=== PATIENT | female | born 1950 | race Caucasian/White ===

== ENCOUNTER → 2017-11-10 | Outpatient (CLI) | payer OTHER ==
[~2017-11-10] MED LIST: Bactrim Ds Tab1 EACH PO; CARI350 PO; CEPH500 PO; DIVA500EC PO; DOCU100 PO; GAVILAX17 GM PO; HYDACE5 PO; HYDR1TAB94 PO; IBU600 MG PO; Keflex500 MG PO; LOSA50 PO; NAPR500 PO; PEGANONE PO; Percocet 5-3251 EACH PO; SULTRIDS PO
== END | disposition home or self-care (01) ==
LOC: PLD 13:15 → LAB SHORT 13:15
DX: C44.629 Squamous cell carcinoma of skin of left upper limb, including shoulder (principal)
CPT/HCPCS: 88305

== ENCOUNTER 2018-02-22 12:12 | Emergency (ER) | payer OTHER ==
[~2018-02-22] VITALS: Ht 170.2 cm; Wt 92.5 kg
[~2018-02-22 12:12] MED LIST changes: -DOCU100 PO; -IBU600 MG PO; -Keflex500 MG PO; -Percocet 5-3251 EACH PO
[2018-02-22] MEDS ORDERED: PEGANONE PO (12:31)
[2018-02-22] MEDS ORDERED: Keflex500 MG PO (15:33)
== END 2018-02-22 16:00 | disposition home or self-care (01) ==
LOC: ER 12:12
DX: S81.812A Laceration without foreign body, left lower leg, initial encounter (principal); W45.8XXA Other foreign body or object entering through skin, initial encounter; Z79.899 Other long term (current) drug therapy; G40.909 Epilepsy, unspecified, not intractable, without status epilepticus
CPT/HCPCS: 12034; 90471; 90714; 99283

== ENCOUNTER 2018-04-06 05:56 | Inpatient (IN) | payer OTHER ==
[~2018-04-06] VITALS: Ht 165.1 cm; Wt 92.5 kg
[~2018-04-06 05:56] MED LIST changes: +Keflex500 MG PO
[2018-04-07 05:57] LABS: BASOPHILS ABSOLUTE AUTO 0.03 K/mm3 (0.00-0.23); BASOPHILS PERCENT AUTO 0 % (0-2); EOSINOPHILS ABSOLUTE AUTO 0.11 K/mm3 (0.00-0.68); EOSINOPHILS PERCENT AUTO 1 % (0-6); Hematocrit 31.3 % (33.0-51.0); IMMATURE GRAN ABSOLUTE AUTO 0.03 K/mm3 (0.00-0.10); IMMATURE GRAN PERCENT AUTO 0 % (0-1); LYMPHOCYTES ABSOLUTE AUTO 3.01 K/mm3 (0.84-5.20); LYMPHOCYTES PERCENT AUTO 30 % (21-46); MONOCYTES ABSOLUTE AUTO 2.18 K/mm3 (0.16-1.47); MONOCYTES PERCENT AUTO 22 % (4-13); Mean Corpuscular HGB 31.7 pg (26.0-34.0); Mean Corpuscular HGB Conc 31.9 g/dL (31.5-36.5); Mean Corpuscular Volume 99 fL (80-100); Mean Platelet Volume 10.8 fL (9.1-12.4); NEUTROPHILS ABSOLUTE AUTO 4.67 K/mm3 (1.96-9.15); NEUTROPHILS PERCENT AUTO 47 % (41-73); Platelet Count 205 K/mm3 (150-400); RDW Coefficient Variation 15.1 % (11.7-14.2); RDW Standard Deviation 54.5 fL (35.1-46.3); Red Blood Cell Count 3.15 M/mm3 (3.80-5.20); White Blood Cell Count 10.03 K/mm3 (4.00-11.30)
[2018-04-07] MEDS ORDERED: DOCU100 PO (08:54)
[2018-04-07] MEDS ORDERED: Percocet 5-3251 EACH PO (08:55)
[2018-04-07] MEDS ORDERED: IBU600 MG PO (08:58)
== END 2018-04-07 14:12 | disposition home or self-care (01) | DRG 747 ==
LOC: SURS 05:56 → PRE IP 07:30 → SURS 09:47
PROVIDERS: Obstetrics & Gynecology
PROC: 0JQC3ZZ Repair Pelvic Region Subcutaneous Tissue and Fascia, Percutaneous Approach (ICD-10-PCS; 2018-04-06)
PROC: 0JQC3ZZ Repair Pelvic Region Subcutaneous Tissue and Fascia, Percutaneous Approach (ICD-10-PCS; 2018-04-06)
PROC: 0UQF3ZZ Repair Cul-de-sac, Percutaneous Approach (ICD-10-PCS; principal; 2018-04-06 07:30)
DX: N99.3 Prolapse of vaginal vault after hysterectomy (principal); G40.909 Epilepsy, unspecified, not intractable, without status epilepticus; Z86.11 Personal history of tuberculosis; M19.90 Unspecified osteoarthritis, unspecified site; Z90.710 Acquired absence of both cervix and uterus; Z90.722 Acquired absence of ovaries, bilateral
CPT/HCPCS: 36415; 85025; J0171; J0690; J1100; J1885; J2250; J2370; J2405; J3010; J7120

== ENCOUNTER → 2018-05-25 | Outpatient (CLI) | payer OTHER ==
[~2018-05-25] MED LIST changes: +DOCU100 PO; +IBU600 MG PO; +Percocet 5-3251 EACH PO
== END | disposition home or self-care (01) ==
LOC: LAB SHORT 07:57 → PLD 07:57
DX: D09.8 Carcinoma in situ of other specified sites (principal)
CPT/HCPCS: 88305

== ENCOUNTER 2020-06-02 10:14 | Observation (INO) | payer OTHER ==
[~2020-06-02] VITALS: Ht 167.6 cm; Wt 81.7 kg
[~2020-06-02 10:14] MED LIST changes: -DIVA500EC PO
[2020-06-02 10:47] LABS: BASOPHILS ABSOLUTE AUTO 0.03 K/mm3 (0.00-0.23); BASOPHILS PERCENT AUTO 0 % (0-2); EOSINOPHILS ABSOLUTE AUTO 0.16 K/mm3 (0.00-0.68); EOSINOPHILS PERCENT AUTO 2 % (0-6); Hematocrit 35.8 % (33.0-51.0); Hemoglobin 11.7 g/dL (11.5-16.0); IMMATURE GRAN ABSOLUTE AUTO 0.02 K/mm3 (0.00-0.10); IMMATURE GRAN PERCENT AUTO 0 % (0-1); LYMPHOCYTES ABSOLUTE AUTO 1.88 K/mm3 (0.84-5.20); LYMPHOCYTES PERCENT AUTO 21 % (21-46); MONOCYTES ABSOLUTE AUTO 1.43 K/mm3 (0.16-1.47); MONOCYTES PERCENT AUTO 16 % (4-13); Mean Corpuscular HGB 33.9 pg (26.0-34.0); Mean Corpuscular HGB Conc 32.7 g/dL (31.5-36.5); Mean Corpuscular Volume 104 fL (80-100); Mean Platelet Volume 11.3 fL (9.1-12.4); NEUTROPHILS ABSOLUTE AUTO 5.38 K/mm3 (1.96-9.15); NEUTROPHILS PERCENT AUTO 61 % (41-73); Platelet Count 146 K/mm3 (150-400); RDW Coefficient Variation 14.8 % (11.7-14.2); RDW Standard Deviation 57.1 fL (35.1-46.3); Red Blood Cell Count 3.45 M/mm3 (3.80-5.20)
[2020-06-02 11:09] LABS: Alanine Aminotransfer (ALT/SGP 7 U/L (12-78); Albumin, Blood 2.1 g/dL (3.4-5.0); Albumin/Globulin Ratio 0.4 (0.8-1.8); Alk Phos 211 U/L (50-136); Anion Gap 1 mmol/L (6-16); Aspartate Aminotrans (AST/SGOT 19 U/L (12-37); Bilirubin, Total 0.5 mg/dL (0.1-1.0); Blood Urea Nitrogen 40 mg/dL (8-24); CO2, Blood 31 mmol/L (21-32); Calcium, Blood 8.7 mg/dL (8.5-10.1); Chloride, Blood 110 mmol/L (98-108); Creatinine, Blood 0.91 mg/dL (0.40-1.00); Globulin, Blood 5.2 g/dL (2.2-4.0); Glomerular Filtration Rate >60 (60-); Glucose, Blood 84 mg/dL (70-99); Potassium, Blood 4.6 mmol/L (3.5-5.5); Sodium, Blood 142 mmol/L (136-145); Total Protein, Blood 7.3 g/dL (6.4-8.2); Troponin I <0.015 ng/mL (0.000-0.040)
[2020-06-02 12:14] LABS: Source, Urine Catheter
[2020-06-02 12:16] LABS: Appearance, Urine Clear (Clear); Bilirubin, Urine Neg (Neg); Blood, Urine Neg (Neg); Color, Urine Yellow (P-Yellow); Glucose Qualitative, Urine Neg (Neg); Ketones, Urine 2+ (Neg); Leukocyte Esterase, Urine Neg (Neg); Nitrite, Urine Neg (Neg); Protein, Urine 1+ (Neg); Urobilinogen, Urine NORM (Normal)
[2020-06-02] MEDS ORDERED: TORS10 PO (13:06)
[2020-06-02 13:18] LABS: International Normalized Ratio 1.01; Prothrombin Time Results 10.8 Sec (9.7-11.5)
[2020-06-02] MEDS ORDERED: Depakote ER500 MG PO ×2 (13:18→13:19)
[2020-06-02] MEDS ORDERED: PEGANONE PO ×2 (13:21)
--- NOTE | 2020-06-02 18:45 | NUR ---
HX AND MED REC OBTAINED FROM PATIENT AND SPOUSE. PATIENT TO CT SCAN. PHOTO DOCUMENTATION OF BUTTOCK EXCORIATION COMPLETED. PATIENT TAKING DINNER. REPORT TO ADOLPH DIAS.
[2020-06-02 19:20] LABS: Hematocrit 38.2 % (33.0-51.0); Hemoglobin 12.5 g/dL (11.5-16.0)
[2020-06-03] MEDS ORDERED: PEGANONE PO
--- NOTE | 2020-06-03 04:57 | NUR ---
SHIFT SUMMARY A/O BUT SLOW TO RESPOND AT TIMES AND CAN BE EASILY CONFUSED. VSS. NPO. TURNED T/O SHIFT OFTEN, RIGO. 2-3+ EDEMA TO BLE, PT STATES AT BASELINE. BLE ELEVATED ON PILLOWS. PHOTOS OF RED AREA/BREAK DOWN TO COCCYX TAKEN AND PLACED IN CHART. MEPILEX TO COCCYX PLACED AND IS CDI. PAIN MANAGED WITH PO MEDS AND FENTANYL X1 FOR BREAKTHROUGHT. IVF INFUSING PER ORDERS. RIOS TO GRAVITY DRAIN. SPOUSE IS TO BRING IN MED REC FROM HOME FOR VERIFICATION. PT CURRENTLY RESTING IN BED WITH CALL LIGHT IN REACH.
[2020-06-03 04:59] LABS: BASOPHILS ABSOLUTE AUTO 0.03 K/mm3 (0.00-0.23); BASOPHILS PERCENT AUTO 0 % (0-2); EOSINOPHILS ABSOLUTE AUTO 0.24 K/mm3 (0.00-0.68); EOSINOPHILS PERCENT AUTO 3 % (0-6); Hemoglobin 12.2 g/dL (11.5-16.0); IMMATURE GRAN ABSOLUTE AUTO 0.02 K/mm3 (0.00-0.10); IMMATURE GRAN PERCENT AUTO 0 % (0-1); LYMPHOCYTES ABSOLUTE AUTO 1.88 K/mm3 (0.84-5.20); LYMPHOCYTES PERCENT AUTO 26 % (21-46); MONOCYTES ABSOLUTE AUTO 1.42 K/mm3 (0.16-1.47); MONOCYTES PERCENT AUTO 20 % (4-13); Mean Corpuscular HGB 33.7 pg (26.0-34.0); Mean Corpuscular HGB Conc 32.1 g/dL (31.5-36.5); Mean Corpuscular Volume 105 fL (80-100); Mean Platelet Volume 11.7 fL (9.1-12.4); NEUTROPHILS ABSOLUTE AUTO 3.58 K/mm3 (1.96-9.15); NEUTROPHILS PERCENT AUTO 50 % (41-73); Platelet Count 126 K/mm3 (150-400); RDW Coefficient Variation 14.7 % (11.7-14.2); RDW Standard Deviation 57.7 fL (35.1-46.3); Red Blood Cell Count 3.62 M/mm3 (3.80-5.20); White Blood Cell Count 7.17 K/mm3 (4.00-11.30)
[2020-06-03 05:12] LABS: Alanine Aminotransfer (ALT/SGP 52 U/L (12-78); Albumin, Blood 1.9 g/dL (3.4-5.0); Albumin/Globulin Ratio 0.4 (0.8-1.8); Alk Phos 283 U/L (50-136); Anion Gap 3 mmol/L (6-16); Aspartate Aminotrans (AST/SGOT 237 U/L (12-37); Bilirubin, Total 0.8 mg/dL (0.1-1.0); Blood Urea Nitrogen 40 mg/dL (8-24); Bun/Creatinine Ratio 54.6 (12.0-20.0); CO2, Blood 29 mmol/L (21-32); Calcium, Blood 8.3 mg/dL (8.5-10.1); Chloride, Blood 110 mmol/L (98-108); Creatinine, Blood 0.73 mg/dL (0.40-1.00); Globulin, Blood 4.8 g/dL (2.2-4.0); Glomerular Filtration Rate >60 (60-); Glucose, Blood 75 mg/dL (70-99); Potassium, Blood 4.4 mmol/L (3.5-5.5); Sodium, Blood 142 mmol/L (136-145); Total Protein, Blood 6.7 g/dL (6.4-8.2)
--- NOTE | 2020-06-03 07:00 | NUR ---
recvd report from previous shift rn Lesley, pt sleeping in room with tv on low volume. bed in lowest position, bed rails up x 2, call light within reach
--- NOTE | 2020-06-03 08:34 | NUR ---
dr ortiz and amanda blackmon consulted with pt. after review of ct scan, no fx; pt nonsurgical
--- NOTE | 2020-06-03 10:30 | NUR ---
FAMILY IN WITH PT
--- NOTE | 2020-06-03 11:10 | NUR ---
CARE MANAGEMENT IN WITH PT AND
--- NOTE | 2020-06-03 15:00 | NUR ---
1100- pt's family has come to pt's room, , daughter in law, and two granddaughters. pt's family notified of visitation polity 1200- pt's daughter in law and grandchildren left; pt's remains 1500- pt's daughter outside requesting to be admitted. daughter notified of visitation policy. admitting has called the surgical desk 3 times; pt's requesting this RN call admitting and tell them "it's ok". Pt's relayed that he does not drive, and that one of his family members will need to take him home. Permission given for Pt's daughter to come to room, will take pt's home. Admitting called desk another time, relaying that pt's daughter has developmentally disabled child with her; 15 YO autistic son accompanies pt's daughter to room. THis RN provided pt's family education/printed material regarding hospital policy. Nursing camp maintenance supervisor notified. Pt's daughter notified she would need to provide transport for pt's when leaving.
--- NOTE | 2020-06-03 16:23 | NUR ---
second shift supervisor: vss, no acute changes. pt remained at baseline orientation r/t hx of parkinson's. Pt family has been visiting t/o shift. PT repositioned q2 this shift. pt states she does not have "much of an appetite"; has had minimal PO intake. Nursing staff has encouraged snacks and told family members they may bring her favorite snacks/food items from home. pt has received Lasix diuretic per nov with 1000 ml urine output. Lungs clear. PT/OT attempted to work with pt, co-treat, were able to sit pt on edge of bed, 2 person max assist, pt cried out. pt appeared to be fearful/anxious with moving. family notifed nursing staff that pt's is fearful of falling if she stands. business services tech transitional care nurse has visited with family and provided resources for DC planning.
--- NOTE | 2020-06-03 17:25 | NUR ---
APPROX 1130 PT'S BROUGHT HOME MEDICATION PEGANONE, IN STAPLED PLASTIC BAG WITH HANDWRITTEN MARKER "JANAE" AND "PEGANONE" WRITTEN ON BAG. THIS RN REQUESTED PRESCRIPTION BOTTLE WITH PT'S IDENTIFIERS, PRESCRIBING PROVIDER, INSTRUCTIONS TO BE SENT TO PHARMACY FOR VERIFICATION. PT'S REPORTS THEY DO NOT HAVE THIS, THAT THEY PURCHASE THIS "ORPHAN" DRUG DIRECT FROM THE HAND STITCHER, THAT THEIR NEUROLOGIST IN [place] APPROVED THIS. PT'S DISPENSED MEDICATION AT NOON. 1600-THIS RN SPOKE WITH DR HURTADO, REPORTED THE PT'S HOME DOSE AND SCHEDULED FOR PEGANONE, WHICH INCLUDES THE FOLLOWING: PEGANONE 250 MG TABS, TAKE 2 TABS IN THE MORNING, 1 TAB AT 1200, [address] HURTADO GAVE ORDERS FOR PT TO TAKE HOME DOSE AT SCHEDULED TIMES 1730- THIS RN CALLED PHARMACY, SPOKE WITH LUNA, RELAYED INFORMATION FROM PT'S FAMILY AND DR HURTADO. PHARMACIST RELAYED POLICY OF REQUIRED PRESCRIBER, NAMES, LOT/EXPIRATION NUMBER FOR VERIFICATION. THIS RN WILL RETURN THE PILLS TO THE PT'S , SPOKE WITH CYANIDE POT HARDENER AND INSTRUCTED TO HAVE PT'S FAMILY DISPENSE MEDICATION
[2020-06-04 04:45] LABS: BASOPHILS ABSOLUTE AUTO 0.03 K/mm3 (0.00-0.23); BASOPHILS PERCENT AUTO 0 % (0-2); EOSINOPHILS ABSOLUTE AUTO 0.24 K/mm3 (0.00-0.68); EOSINOPHILS PERCENT AUTO 3 % (0-6); Hematocrit 30.6 % (33.0-51.0); Hemoglobin 9.7 g/dL (11.5-16.0); IMMATURE GRAN ABSOLUTE AUTO 0.02 K/mm3 (0.00-0.10); IMMATURE GRAN PERCENT AUTO 0 % (0-1); LYMPHOCYTES ABSOLUTE AUTO 2.31 K/mm3 (0.84-5.20); LYMPHOCYTES PERCENT AUTO 30 % (21-46); MONOCYTES ABSOLUTE AUTO 1.68 K/mm3 (0.16-1.47); MONOCYTES PERCENT AUTO 22 % (4-13); Mean Corpuscular HGB 33.6 pg (26.0-34.0); Mean Corpuscular HGB Conc 31.7 g/dL (31.5-36.5); Mean Corpuscular Volume 106 fL (80-100); NEUTROPHILS ABSOLUTE AUTO 3.53 K/mm3 (1.96-9.15); NEUTROPHILS PERCENT AUTO 45 % (41-73); Platelet Count 128 K/mm3 (150-400); RDW Coefficient Variation 14.6 % (11.7-14.2); RDW Standard Deviation 57.6 fL (35.1-46.3); Red Blood Cell Count 2.89 M/mm3 (3.80-5.20); White Blood Cell Count 7.81 K/mm3 (4.00-11.30)
[2020-06-04 05:12] LABS: Alanine Aminotransfer (ALT/SGP 35 U/L (12-78); Albumin, Blood 1.5 g/dL (3.4-5.0); Albumin/Globulin Ratio 0.4 (0.8-1.8); Alk Phos 245 U/L (50-136); Anion Gap 2 mmol/L (6-16); Aspartate Aminotrans (AST/SGOT 112 U/L (12-37); Bilirubin, Total 0.4 mg/dL (0.1-1.0); Blood Urea Nitrogen 33 mg/dL (8-24); Bun/Creatinine Ratio 45.1 (12.0-20.0); CO2, Blood 30 mmol/L (21-32); Calcium, Blood 8.2 mg/dL (8.5-10.1); Chloride, Blood 108 mmol/L (98-108); Creatinine, Blood 0.73 mg/dL (0.40-1.00); Globulin, Blood 4.2 g/dL (2.2-4.0); Glomerular Filtration Rate >60 (60-); Glucose, Blood 78 mg/dL (70-99); Potassium, Blood 4.9 mmol/L (3.5-5.5); Sodium, Blood 140 mmol/L (136-145); Total Protein, Blood 5.7 g/dL (6.4-8.2)
--- NOTE | 2020-06-04 06:33 | NUR ---
SHIFT SUMMARY GROUND LVL FALL, A/O X4 W/ INTERMITTENT CONFUSION W/ TIME/PLACE, PT WAS ALWAYS ABLE TO IDENTIFY SELF/LOCATION. VSS, DECUB ON L GLUTEAL COVERED W/ MEPILEX THAT IS C/D/I, REPOSITION Q2, PAIN CONTROLLED PER EMAR. PT FAMILY TO BRING IN PILLOW FROM HOME TO PLACE UNDER PT FOR PT COMFORT. FAMILY TO ALSO BRING IN A HOME MEDICATION THAT IS NOT IN INVENTORY. FAMILY INSTRUCTED TO DO THIS PER PRIOR SHIFT RN (SEE NOTES). WILL CONTINUE TO MONITOR AND REPORT TO ONCOMING DAY RN.
--- NOTE | 2020-06-04 10:44 | NUR ---
PT COMPLAINED OF A SORE THROAT. PT'S THROAT DOES NOT APPEAR RED OR HAVE WHITE SPOTS OR COATING. VSS. WILL CONTINUE TO MONITOR.
--- NOTE | 2020-06-04 18:25 | NUR ---
SHIFT SUMMARY PT WAS ADMITTED FOR A SMALL BOWEL OBSTRUCTIONS WHICH APPEARS TO BE RESOLVING. PT HAS BOWEL SOUNDS AND REPORTS PASSING FLATUS. PT HAS TOLERATED A CLEAR LIQUID DIET TODAY. PT IS GETTING ANTIBIOTICS FOR UTI. PLAN FOR RETURN HOME TO [facility] WHEN PT IS A 1 PERSON ASSIST. PT HAD DIFFICULTY DRINKING THIN LIQUIDS TODAY. STAFF AT [facility] REPORT THAT PT TOLERATED THIN LIQUIDS AND STRAWS AT HOME. SPEECH THERAPY CONSULT REQUESTED. PLAN FOR PT/OT TOMORROW. PT'S DAUGHTER (CRISTIANE) HAS BEEN IN CONTACT WITH PT AND STAFF. PT HAS BEEN ASSISTED TO CALL HER SINCE SHE TALKS WITH HIM DAILY. VSS. WILL MONITOR UNTIL REPORT TO ONCOMING RN.
--- NOTE | 2020-06-04 18:44 | NUR ---
SHIFT SUMMARY PT WAS ADMITTED FOR PAIN MANAGEMENT R/T R HIP CONTUSION. PAIN HAS BEEN MANAGED WITH PO OXYCODONE THIS SHIFT. SHE IS A 2 PERSON ASSIST FOR REPOSITIONING. PT HAS BEEN REPOSITIONED FREQUENTLY T/O THE DAY. FAMILY BROUGHT IN A CUSION TO PLACE UNDER THE PT FOR COMFORT. PT REPORTED IMPROVED COMFORT. FAMILY HAS BEEN PRESENT FOR SUPPORT. VSS. WILL MONITOR UNTIL REPORT TO ONCOMING RN.
--- NOTE | 2020-06-05 03:49 | NUR ---
SUMMARY PT RECEIVED PO PAIN MED X1 AND APPEARING SLEEPING AFTER. NO ACUTE CHANGES NOTED.
[2020-06-05 05:08] LABS: Anion Gap 1 mmol/L (6-16); Blood Urea Nitrogen 23 mg/dL (8-24); Bun/Creatinine Ratio 37.5 (12.0-20.0); CO2, Blood 32 mmol/L (21-32); Calcium, Blood 8.5 mg/dL (8.5-10.1); Chloride, Blood 104 mmol/L (98-108); Creatinine, Blood 0.61 mg/dL (0.40-1.00); Glomerular Filtration Rate >60 (60-); Glucose, Blood 88 mg/dL (70-99); Sodium, Blood 137 mmol/L (136-145)
--- NOTE | 2020-06-05 06:01 | NUR ---
SUMMARY PT WITH INDENTATIONS AND PINK IN AREAS OF SCD AIR POCKETS REPLACED CALF SCDS WITH KNEE HIGH TEDS AND FOOT PAS PUMPS.
--- NOTE | 2020-06-05 08:52 | NUR ---
DISCUSSED WITH DR NAVARRO PT UNABLE TO SWALLOW ER DEPAKOTE. TO SEE PT, FAMILY IN ROOM.
--- NOTE | 2020-06-05 10:43 | NUR ---
PT RESTING QUIETLY, PT'S FAMILY REPORTS MAY TALK TO PT'S ON PHONE. CALLED FOR UPDATE, [place] TO HAVE DR CALL HIM, EXPRESSING CONCERN OF GOING HOME TODAY, REQ TO HAVE HOSPITAL BED IN HOME. DR NOTIFIED. MUD PLANT OPERATOR NOTIFIED.
--- NOTE | 2020-06-05 13:58 | NUR ---
DR NAVARRO HERE TO SEE PT AND PER REQUEST.
[2020-06-05] MEDS ORDERED: BENMENLOZ PO (14:27)
[2020-06-05] MEDS ORDERED: ROXICODONE5 MG PO (14:28)
[2020-06-05] MEDS ORDERED: EUTHYROX75 MCG PO (14:28)
[2020-06-05] MEDS ORDERED: MIRALAX17 GM PO (14:29)
--- NOTE | 2020-06-05 17:45 | NUR ---
DISCHARGE: PT EATING AND DRINKING. PT HAS RIOS IN PLACE. PT REPORTED TO THIS RN THAT SHE HAS BEEN FOR A LONG TIME AND THAT HER TAKES GOOD CARE OF HER AND THAT SHE IS READY AND WANTS TO GO HOME. TRANSPORT HERE TO GET PT. DISCUSSED WITH PT'S OVER PHONE DISCHARGE ORDERS. REPORTS HER SON ALREADY GOT PT'S MEDICATION AND THAT THEY HAVE PAIN MEDICATION AT HOME THAT WILL GET HER THROUGH TONIGHT IF THEY ARE UNABLE TO CITY CLERK SCRIPT TONIGHT. COVERING AND LINING SUPERVISOR ASSISTED WITH PT'S DISCHARGE. PT REPORTED TO HAVE BED DELIVERED TODAY. RT COMPLETED HOME O2 EVAL WHICH SHE DID NOT QUALIFY FOR AND COVERING AND LINING SUPERVISOR DISCUSSED WITH PT'S WELL. PT SENT HOME BY GURNEY TRANSPORT WITH BELONGINGS AND PAPERWORK. INCLUDING PT'S BLACK FOAM PAD FOR HER BOTTOM.
== END 2020-06-05 17:52 | disposition home or self-care (01) ==
LOC: ER 10:14 → ERHOLD 10:15 → SURS 10:15 → ERHOLD 14:16 → SURS 14:16 → ER 14:16 → SURS 17:29 → ERHOLD 17:29 → SURS 06-03 15:18
PROVIDERS: Emergency Medicine; Internal Medicine; Nurse Practitioner Acute Care; ADMIT Family Medicine
DX: S70.01XA Contusion of right hip, initial encounter (principal); W07.XXXA Fall from chair, initial encounter; K62.5 Hemorrhage of anus and rectum; R60.0 Localized edema; I10 Essential (primary) hypertension; G40.209 Localization-related (focal) (partial) symptomatic epilepsy and epileptic syndromes with complex partial seizures, not intractable, without status epilepticus; E03.9 Hypothyroidism, unspecified; Z79.899 Other long term (current) drug therapy
CPT/HCPCS: 36415; 51702; 71045; 73502; 73560-RT; 73700; 80048; 80053; 80164; 83690; 83735; 84443; 84484; 85014; 85018; 85025; 85610; 85730; 93005; 93010; 94761; 96374-59; 96375-59; 97112; 97162; 97166; 99285-25; A9270; A9270-GY; J1650; J1940; J2405; J3010; J7030

== ENCOUNTER 2020-06-15 13:03 | Inpatient (IN) | payer OTHER ==
[~2020-06-15] VITALS: Ht 170.2 cm; Wt 68.2 kg
[~2020-06-15 13:03] MED LIST changes: +BENMENLOZ PO; +Depakote ER500 MG PO; +EUTHYROX75 MCG PO; +MIRALAX17 GM PO; +ROXICODONE5 MG PO; +TORS10 PO
[2020-06-15 13:34] LABS: Hematocrit 31.4 % (33.0-51.0); Hemoglobin 10.4 g/dL (11.5-16.0); Mean Corpuscular HGB 33.4 pg (26.0-34.0); Mean Corpuscular HGB Conc 33.1 g/dL (31.5-36.5); Mean Corpuscular Volume 101 fL (80-100); Platelet Count 238 K/mm3 (150-400); RDW Coefficient Variation 14.8 % (11.7-14.2); Red Blood Cell Count 3.11 M/mm3 (3.80-5.20); White Blood Cell Count 15.33 K/mm3 (4.00-11.30)
[2020-06-15 13:54] LABS: International Normalized Ratio 1.19; Prothrombin Time Results 12.6 Sec (9.7-11.5)
[2020-06-15 14:01] LABS: BAND PERCENT MAN 7 % (0-8); BASOPHILS PERCENT MAN 0 % (0-2); EOSINOPHILS PERCENT MAN 0 % (0-6); LYMPHOCYTES ABSOLUTE MAN 1.83 K/mm3 (0.84-5.20); LYMPHOCYTES PERCENT MAN 12 % (21-46); MONOCYTES ABSOLUTE MAN 3.37 K/mm3 (0.16-1.47); MONOCYTES PERCENT MAN 22 % (4-13); NEUTROPHILS ABSOLUTE MAN 10.11 K/mm3 (1.96-9.15); SEG NEUTROPHILS PERCENT MAN 59 % (41-73); TOTAL CELLS COUNTED 100
[2020-06-15 14:15] LABS: Alanine Aminotransfer (ALT/SGP 16 U/L (12-78); Albumin, Blood 1.3 g/dL (3.4-5.0); Albumin/Globulin Ratio 0.3 (0.8-1.8); Alk Phos 143 U/L (50-136); Anion Gap 6 mmol/L (6-16); Aspartate Aminotrans (AST/SGOT 34 U/L (12-37); Bilirubin, Total 0.3 mg/dL (0.1-1.0); Blood Urea Nitrogen 54 mg/dL (8-24); Bun/Creatinine Ratio 35.3 (12.0-20.0); CO2, Blood 31 mmol/L (21-32); Calcium, Blood 8.2 mg/dL (8.5-10.1); Carbamazepine <0.5 ug/mL (4.0-12.0); Chloride, Blood 92 mmol/L (98-108); Creatinine, Blood 1.53 mg/dL (0.40-1.00); Globulin, Blood 4.8 g/dL (2.2-4.0); Glomerular Filtration Rate 36 (60-); Glucose, Blood 87 mg/dL (70-99); Potassium, Blood 4.3 mmol/L (3.5-5.5); Sodium, Blood 129 mmol/L (136-145); Total Protein, Blood 6.1 g/dL (6.4-8.2); Troponin I <0.015 ng/mL (0.000-0.040)
[2020-06-15 15:18] LABS: Source, Urine Catheter
[2020-06-15 15:20] LABS: Appearance, Urine Hazy (Clear); Bilirubin, Urine Neg (Neg); Blood, Urine 4+ (Neg); Color, Urine Yellow (P-Yellow); Glucose Qualitative, Urine Neg (Neg); Ketones, Urine 1+ (Neg); Leukocyte Esterase, Urine 3+ (Neg); Nitrite, Urine Neg (Neg); Protein, Urine 2+ (Neg); Specific Gravity, Urine 1.015 (1.003-1.022); Urobilinogen, Urine 1+ (Normal)
[2020-06-15 15:31] LABS: Amorphous Light (0-Heavy); Bacteria Many /hpf; Renal Epithelial Rare /hpf (0-Rare); Squamous Epithelial Cells Not Seen /hpf (Few)
[2020-06-15] MEDS ORDERED: DIVA125 PO ×4 (15:40→15:41)
[2020-06-15] MEDS ORDERED: TORS10 PO (15:42)
[2020-06-15] MEDS ORDERED: PEGANONE PO ×4 (15:46→15:47)
--- NOTE | 2020-06-15 19:44 | NUR ---
NEW ER ADMIT APPROX 1800 PT ARRIVE TO 363 FROM ER VIA GURNEY ACCOMPANIED BY & DAUGHTER. PT UNABLE TO STAND/BR WT PER FAMILY, LIFT PT @ HOME. HX PARKINSONS. PT IS AWAKE, ORIENT X2, VOICE VERY WEAK, SHE ALLOWS FAMILY TO ANSWER MOST ADMIT QUESTIONS. SHE STATE NO PAIN @ THIS TIME, NO SOB. RIOS CATH PRESENT @ ADMIT, FAMILY STATE SHE WENT HOME WITH IT WHEN LAST D/C FROM HOSP. NOC RN ALERTED THAT CATH WILL NEED TO BE CHANGED. IV NS INFUSION STARTED/ORDER. FLU VAC GIVEN/REQUEST. FAMILY STATE PT HAS BUTTOCKS ULCER, NOC RN TO PHOTO/ASSESS. PT ARRIVE TO W O2 @ 4L 99%, WILL TITRATE DOWN. FAMILY STATE ON RA @ HOME. DR RAMOS ORDER NPO X MEDS W SM BITES PUREE UNTIL ST EVAL, PT/FAMILY NOTIFIED. ORIENTED TO & CALL SYSTEM, PT DEMONSTRATES USE OF REMOTE. SITTING UP WATCHING TV @ BEDSIDE REPORT.
[2020-06-16 05:34] LABS: BASOPHILS ABSOLUTE AUTO 0.03 K/mm3 (0.00-0.23); BASOPHILS PERCENT AUTO 0 % (0-2); EOSINOPHILS ABSOLUTE AUTO 0.31 K/mm3 (0.00-0.68); EOSINOPHILS PERCENT AUTO 2 % (0-6); Hematocrit 28.8 % (33.0-51.0); Hemoglobin 9.7 g/dL (11.5-16.0); IMMATURE GRAN ABSOLUTE AUTO 0.07 K/mm3 (0.00-0.10); IMMATURE GRAN PERCENT AUTO 1 % (0-1); LYMPHOCYTES ABSOLUTE AUTO 2.35 K/mm3 (0.84-5.20); LYMPHOCYTES PERCENT AUTO 18 % (21-46); MONOCYTES ABSOLUTE AUTO 3.03 K/mm3 (0.16-1.47); MONOCYTES PERCENT AUTO 24 % (4-13); Mean Corpuscular HGB 33.8 pg (26.0-34.0); Mean Corpuscular HGB Conc 33.7 g/dL (31.5-36.5); Mean Corpuscular Volume 100 fL (80-100); Mean Platelet Volume 10.9 fL (9.1-12.4); NEUTROPHILS ABSOLUTE AUTO 7.03 K/mm3 (1.96-9.15); NEUTROPHILS PERCENT AUTO 55 % (41-73); Platelet Count 225 K/mm3 (150-400); RDW Coefficient Variation 14.7 % (11.7-14.2); RDW Standard Deviation 53.8 fL (35.1-46.3); Red Blood Cell Count 2.87 M/mm3 (3.80-5.20); White Blood Cell Count 12.82 K/mm3 (4.00-11.30)
[2020-06-16 06:03] LABS: Albumin, Blood 1.2 g/dL (3.4-5.0); Anion Gap 5 mmol/L (6-16); Blood Urea Nitrogen 50 mg/dL (8-24); Bun/Creatinine Ratio 47.6 (12.0-20.0); CO2, Blood 30 mmol/L (21-32); Chloride, Blood 96 mmol/L (98-108); Creatinine, Blood 1.05 mg/dL (0.40-1.00); Glomerular Filtration Rate 55 (60-); Glucose, Blood 93 mg/dL (70-99); Phosphorus, Blood 3.7 mg/dL (2.5-4.9); Potassium, Blood 4.1 mmol/L (3.5-5.5); Sodium, Blood 131 mmol/L (136-145)
--- NOTE | 2020-06-16 06:21 | NUR ---
AUTOMOBILE DETAILER SUMMARY NO ACUTE CHANGES THIS SHIFT. PT AAOX3, ABLE TO COMMUNICATE HER NEEDS BUT IS VERY FLAT IN AFFECT. HOME RIOS CATHETER REPLACED WITH NEW ONE. PT DID NOT TOLERATE VERY WELL BECAUSE SHE IS VERY PAINFUL WITH ANY MOVEMENT OR TOUCH. LEGS ARE VERY SENSITIVE WITH 3+ EDEMA. MEDS CRUSHED IN APPLESAUCE WITH ORAL CARE AFTER PT TENDS TO UNINTENTIONALLY POCKET FOOD IN CHEEKS. PT HAS SLEPT MOST OF THE NIGHT ON 2L O2 VIA NC. VSS, WILL CONTINUE TO MONITOR.
--- NOTE | 2020-06-16 18:53 | NUR ---
SHIFT SUMMARY PT AxOx3. IMPROVED ORIENTATION DAY PROGRESSED. PT VERY SLEEPY MOST OF DAY. +4 PITTING EDEMA TO BLE. ELEVATED WITH PILLOWS. POOR CIRCULATION IN FINGERS. DC'D CONT BIOX. PT BREATHING WITHOUT DIFFICULTY ON 2L O2 VIA NC. BEDBOUND PT AT BASELINE. PT SHOUTS OUT DURING REPOSITIONS. PT REPORTS THE SHOUTING IN NORMAL, AND NOT D/T PAIN, BUT BECAUSE SHE IS SCARED OF FALLING. IN FOR VISITING THIS EVENING. PT "PERKED UP" FOR VISIT. RIOS CATHETER CHANGED YESTERDAY. CURRENTLY DRAINING CLEAR CHRISTY URINE TO GRAVITY. CATH CARE PERFORMED. WOUND CARE ALSO PERFORMED ON COCCYX AND L HUDSON CHRONIC WOUND. SPEECH EVAL COMPLETED TO DAY AND DIET ORDERS CHANGED. SEE NOTES. PT RESTING COMFORTABLY IN BED WITH CALL LIGHT IN REACH.
--- NOTE | 2020-06-16 19:25 | NUR ---
ASSUMED CARE RECEIVED REPORT FROM LARISSA BLACK. ASSUMED CARE OF PT. RESTING COMFORTABLY AT THIS TIME, NO S/S ACUTE DISTRESS NOTED. RESPS EVEN AND UNLABORED. DENIES NEEDS. CALL LIGHT, POSSESSIONS IN REACH. WILL CONTINUE TO MONITOR.
--- NOTE | 2020-06-16 22:59 | NUR ---
SPOKE TO LEONARD COLE REGARDING PT'S LOWER BP READINGS. ORDERS RECEIVED. CONTINUE TO MONITOR.
--- NOTE | 2020-06-17 04:10 | NUR ---
SHIFT SUMMARY PT RESTING COMFORTABLY, NO S/S ACUTE DISTRESS NOTED. LAB AT BEDSIDE. PT BP'S CONTINUE TO RUN LOW, PT MENTATION IMPROVED, INCREASINGLY ALERT AT TIMES. REPOSITIONED TOLERATED T/O NIGHT, PT CONTINUES TO CRY OUT WHEN MOVED, PROVIDED REASSURANCE NEEDED. DENIES NEEDS AT THIS TIME. CALL LIGHT, POSSESSIONS IN REACH. WILL CONTINUE TO MONITOR AND PROVIDE CARE NEEDED UNTIL DAY RN ASSUMES CARE.
[2020-06-17 05:48] LABS: BASOPHILS ABSOLUTE AUTO 0.02 K/mm3 (0.00-0.23); BASOPHILS PERCENT AUTO 0 % (0-2); EOSINOPHILS ABSOLUTE AUTO 0.35 K/mm3 (0.00-0.68); EOSINOPHILS PERCENT AUTO 4 % (0-6); Hematocrit 27.5 % (33.0-51.0); Hemoglobin 9.1 g/dL (11.5-16.0); IMMATURE GRAN ABSOLUTE AUTO 0.07 K/mm3 (0.00-0.10); IMMATURE GRAN PERCENT AUTO 1 % (0-1); LYMPHOCYTES ABSOLUTE AUTO 2.24 K/mm3 (0.84-5.20); LYMPHOCYTES PERCENT AUTO 25 % (21-46); MONOCYTES ABSOLUTE AUTO 1.51 K/mm3 (0.16-1.47); MONOCYTES PERCENT AUTO 17 % (4-13); Mean Corpuscular HGB 33.6 pg (26.0-34.0); Mean Corpuscular HGB Conc 33.1 g/dL (31.5-36.5); Mean Corpuscular Volume 102 fL (80-100); Mean Platelet Volume 10.7 fL (9.1-12.4); NEUTROPHILS ABSOLUTE AUTO 4.79 K/mm3 (1.96-9.15); NEUTROPHILS PERCENT AUTO 53 % (41-73); Platelet Count 232 K/mm3 (150-400); RDW Coefficient Variation 14.9 % (11.7-14.2); RDW Standard Deviation 55.8 fL (35.1-46.3); Red Blood Cell Count 2.71 M/mm3 (3.80-5.20); White Blood Cell Count 8.98 K/mm3 (4.00-11.30)
[2020-06-17 06:23] LABS: Albumin, Blood 1.1 g/dL (3.4-5.0); Anion Gap 2 mmol/L (6-16); Blood Urea Nitrogen 46 mg/dL (8-24); Bun/Creatinine Ratio 65.6 (12.0-20.0); CO2, Blood 31 mmol/L (21-32); Chloride, Blood 101 mmol/L (98-108); Glomerular Filtration Rate >60 (60-); Glucose, Blood 85 mg/dL (70-99); Magnesium, Blood 2.4 mg/dL (1.6-2.4); Phosphorus, Blood 2.9 mg/dL (2.5-4.9); Sodium, Blood 134 mmol/L (136-145)
--- NOTE | 2020-06-17 07:41 | NUR ---
RIOS CATH FLUSHED MINIMAL URINE OUTPUT NOTED T/O NETWORKING SPECIALIST. PT RIOS CATHETER EMPTIED AND FLUSHED TO ASSIST WITH RIOS PATENTCY. APPROX 100ML OUTPUT AFTER FLUSH NOT INCLUDING FLUSH VOLUME.
[2020-06-17 13:03] LABS: Valproic Acid 91.1 ug/mL (50.0-100.0)
--- NOTE | 2020-06-17 18:19 | NUR ---
SHIFT SUMMARY PT AxOx3 TODAY. BEDBOUND. MORE ALERT TODAY THAN YESTERDAY. HAVING DISCUSSIONS ABOUT FAMILY, AND EXPRESSING HER NEEDS APPROPRIATELY. STILL CRIES OUT DURING REPOSITIONS AND NEEDS TO BE MOVED SLOWLY. STATES THIS IS NORMAL. PT HAD DECREASED URINE OUTPUT THIS AM. RESOLVED AFTER LARISSA LOMAX IRRIGATED AND REPOSITIONED CATHETER TUBING. +4 PITTING EDEMA IN BLE, SAME YESTERDAY. DR WADE DC'D FLUIDS AND CHANGED ABX. URINE CULTURE WITH POS E COLI. NO BM TODAY. HYPOTENSIVE. GOOD APPETITE. REPOSITIONS Q2 HR. PT MONICA IN VISITING THIS AFTERNOON. VITALS REVIEWED. PT RESTING IN BED WITH CALL LIGHT ON LAP. NO CONCERNS AT THIS TIME.
--- NOTE | 2020-06-18 05:25 | NUR ---
SHIFT SUMMARY LYING IN HIGH FOWLERS WITH EYES OPEN. HAS RESTED OFF AND ON THROUGHOUT SHIFT. SWALLOWS MEDS CRUSHED IN APPLESAUCE. ABLE TO DRINK NECTAR THICK LIQUIDS WITHOUT STRAW. CONTINUES WITH O2 AT 2L/NC. NO BM THIS SHIFT. REPOSITIONED FOR COMFORT. DENIES FURTHER NEEDS AT THIS TIME. SAFETY MEASURES IN PLACE. WILL CONTINUE TO MONITOR AND GIVE HAND OFF TO ONCOMING SHIFT USING SBAR.
--- NOTE | 2020-06-18 18:13 | NUR ---
SHIFT SUMMARY PT AxOx3 TODAY. MILD INTERMITTENT CONFUSION T/O DAY. SEEMS MORE ORIENTED TODAY THAN YESTERDAY. BEDBOUND AT BASELINE. +4 PITTING EDEMA IN BLE. HEELS RED AND FLOATING. DR WADE ORDERED PT AND OT LEDY TO DETERMINE DC PLANS. PT SUGGESTING GROUP HOME CARE. PT HAS VERY LITTLE STRENGTH OR ABILITY TO FOLLOW INSTRUCTION FOR MOVEMENTS. CRIES OUT IN PAIN/FEAR FOR REPOSITIONS. STATES THIS IS NORMAL FOR HER, BECAUSE SHE IS SCARED SHE WILL FALL. LIVES AT HOME WITH WHO HAS STAGE 4 SPINE CANCER. STATES HE WOULD LIKE TO SEE HER COME HOME. THEY HAVE A NHUNG LIFT, HOME HEALTH 2X PER WEEK, PT ONCE PER WEEK, AND A CAREGIVER THAT GIVES HER A BATH ONCE PER WEEK. TRIED TO GO TO [facility] IN THE PAST, AND FAMILY TOOK HER OUT IN <1 DAY D/T POOR CARE RECEIVED. FLUIDS DC'D. STARTING LASIX TOMORROW. WOUND CARE PERFORMED. CATH CARE PERFORMED. SEE NOTES. GOOD APPETITE. LARGE BM TODAY. PT RESTING IN BED AT THIS TIME. DENIES PAIN/CONCERNS. CALL LIGHT IN REACH.
--- NOTE | 2020-06-19 05:43 | NUR ---
SHIFT SUMMARY PT A&O X 2-3; VSS; DENIES CHEST PAIN; O2 SATS >92 ON RA; LG BM W/ BRIEF CHANGE; STOOL BROWN, LOOSE AND GRITTY; PT MOANS AND CALLS OUT W/ CHANGING; REASSURANCE PROVIDED; RIOS PATENT & DRAINING YELLOW; ORAL CARE PROVIDED; 3+ PITTING EDEMA IN BLE; HEELS FLOATED ON PILLOW; ASSISTED W/ PHONE CALLS FROM FAMILY & SPOUSE; PT SLEPT SEVERAL HOURS IN BETWEEN INTERVENTIONS; CALL LIGHT IN REACH; BED IN LOWEST POSITION; WILL CONTINUE TO MONITOR CLOSELY UNTIL HAND OFF TO DAY SHIFT RN.
--- NOTE | 2020-06-19 10:15 | NUR ---
Entered room as Livan's DIL was asking for some chapstick for pt. Brought pt some chapstick and engaged LAVONNE in brief conversation. LAVONNE reports that she no longer works outside of her home and is now the caregiver for Livan. Livan did not verbally answer when she was spoken to by this technical report writer. LAVONNE reports that they live next door to Livan. Livan was admitted with a UTI. Will plan to review chart and meet with Livan and her family as needed.
--- NOTE | 2020-06-19 14:15 | NUR ---
SHE HAS BEEN FED WHAT SHE WILL EAT AT BREAKFAST AND LUNCH. SHE KEEPS HER EYES CLOSED MOST OF THE TIME. SHE CRIES WHEN WE MOVE HER. GBARIEL BANERJEE AND OTHER CAREGIVER WERE HERE A COUPLE OF HRS THIS MORNING. ST CAME BY AND PALLIATIVE CARE BUT WILL COME BACK WHEN FAMILY RETURNS.
--- NOTE | 2020-06-19 16:52 | NUR ---
SHE HAS KEPT HER EYES CLOSED MOST EVERY MINUTE, EVEN WHEN AWAKE. HER DIL AND SECONDARY CAREGIVER VISITED THIS MORNING AND HER DIL AND SON VISITED WITH HER FOR A SHORT TIME THIS AFTERNOON. ST RE-EVALUATED AND CHNAGED HER HONEY TICK LIQUID TO NECTAR THICK. HER HAS NOT VISITED. PALLIATIVE CARE WILL VISIT WHEN FAMILY IS PRESENT. GABRIEL IS PATENT. SHE HAD 1 INCONTINENT BM THIS AFTERNOON. HER COCCYX FOAM DRESSING IS CD&I. NO LABS TODAY. SHE MAY BE DISCHARGED TO HOME EARLY TOMORROW.
--- NOTE | 2020-06-20 05:30 | NUR ---
SHIFT SUMMARY NO ACUTE CHANGES THIS SHIFT, MEDICATED 1X FOR PAIN AT BEDTIME, NO OTHER C/O ANY KIND, REPOS Q2, MEPILEX ON COCCYX CDI, SLEPT T/O THE NIGHT & SLEEPING AT THIS TIME, CALL LIGHT IN REACH, WILL CONT TO MONITOR UNTIL REPORT GIVEN TO DAY RN.
[2020-06-20] MEDS ORDERED: VISBIOME PROBIOTIC PO (16:54)
[2020-06-20] MEDS ORDERED: LEVO750 PO (16:55)
--- NOTE | 2020-06-20 17:12 | NUR ---
SHE HAS HAD A COMFORTABLE DAY. VSS. WAS FED HER MEALS. HER AND SON VISITED THIS AFTERNOON. HOME O2 EVAL DONE. SHE DOES NOT QUALIFY FOR HOME O2. I COMMUNICATED THIS TO HER SON ALONG WITH ALL DISCHARGE INSTRUCTIONS. SHE DOES NOT WANT THE EARLY DINNER HERE. SHE SAID SHE WANTS TO EAT AT HOME. SHE HAS BEEN BATHED. NEW POLYMEM BANDAID PLACED AND FOAM DRESSING ON HER COCCYX.
--- NOTE | 2020-06-20 17:52 | NUR ---
DISCHARGED AT 1725 BY EMS ELOISA TO HOME. SHE HAS BELONGINGS AND INSTRUCTIONS. I GAVE HER SON ARMOND INSTRUCTIONS ON THE PHONE PRIOR TO HER LEAVING.
[2020-06-21] MEDS ORDERED: DIVA125 PO (21:54)
[2020-06-21] MEDS ORDERED: LOSA50 PO (21:54)
== END 2020-06-20 17:27 | disposition home health service (06) | DRG 698 ==
LOC: ER 13:03 → MEDS 16:20
PROVIDERS: Emergency Medicine; Family Medicine; ADMIT Internal Medicine
DX: T83.518A Infection and inflammatory reaction due to other urinary catheter, initial encounter (principal); R65.20 Severe sepsis without septic shock; G92 Toxic encephalopathy; A41.51 Sepsis due to Escherichia coli [E. coli]; N39.0 Urinary tract infection, site not specified; N17.9 Acute kidney failure, unspecified; E87.1 Hypo-osmolality and hyponatremia; G40.209 Localization-related (focal) (partial) symptomatic epilepsy and epileptic syndromes with complex partial seizures, not intractable, without status epilepticus; E86.0 Dehydration; G20 Parkinson's disease; I10 Essential (primary) hypertension; E03.9 Hypothyroidism, unspecified; Z74.01 Bed confinement status; Z99.3 Dependence on wheelchair; I87.2 Venous insufficiency (chronic) (peripheral); Z87.81 Personal history of (healed) traumatic fracture
CPT/HCPCS: 36415; 71045; 80053; 80069; 80156; 80164; 81001; 83605; 83735; 83880; 84145; 84484; 85025; 85610; 85730; 87040; 87077; 87086; 87186; 92526; 92610; 93005; 93010; 94762; 96361; 96374; 97161; 99285-25; A9270; J0696; J1650; J1940; J2543; J7030; J7040; J7050; J7120; Q2038

== ENCOUNTER 2020-06-21 17:50 | Observation (INO) | payer OTHER ==
[~2020-06-21] VITALS: Ht 167.6 cm; Wt 87.4 kg
[~2020-06-21 17:50] MED LIST changes: +DIVA125 PO; +LEVO750 PO; +VISBIOME PROBIOTIC PO
[2020-06-21 18:53] LABS: BASOPHILS ABSOLUTE AUTO 0.05 K/mm3 (0.00-0.23); BASOPHILS PERCENT AUTO 0 % (0-2); EOSINOPHILS ABSOLUTE AUTO 0.35 K/mm3 (0.00-0.68); EOSINOPHILS PERCENT AUTO 3 % (0-6); Hematocrit 31.8 % (33.0-51.0); Hemoglobin 10.2 g/dL (11.5-16.0); IMMATURE GRAN ABSOLUTE AUTO 0.15 K/mm3 (0.00-0.10); IMMATURE GRAN PERCENT AUTO 1 % (0-1); LYMPHOCYTES ABSOLUTE AUTO 3.35 K/mm3 (0.84-5.20); LYMPHOCYTES PERCENT AUTO 24 % (21-46); MONOCYTES PERCENT AUTO 25 % (4-13); Mean Corpuscular HGB 33.4 pg (26.0-34.0); Mean Corpuscular HGB Conc 32.1 g/dL (31.5-36.5); Mean Corpuscular Volume 104 fL (80-100); Mean Platelet Volume 11.3 fL (9.1-12.4); NEUTROPHILS PERCENT AUTO 47 % (41-73); Platelet Count 254 K/mm3 (150-400); RDW Coefficient Variation 15.1 % (11.7-14.2); Red Blood Cell Count 3.05 M/mm3 (3.80-5.20)
[2020-06-21 19:38] LABS: Alanine Aminotransfer (ALT/SGP 8 U/L (12-78); Albumin, Blood 1.4 g/dL (3.4-5.0); Albumin/Globulin Ratio 0.3 (0.8-1.8); Alk Phos 113 U/L (50-136); Anion Gap 5 mmol/L (6-16); Aspartate Aminotrans (AST/SGOT 23 U/L (12-37); Bilirubin, Total 0.3 mg/dL (0.1-1.0); Blood Urea Nitrogen 34 mg/dL (8-24); Bun/Creatinine Ratio 53.1 (12.0-20.0); CO2, Blood 30 mmol/L (21-32); Chloride, Blood 109 mmol/L (98-108); Creatinine, Blood 0.64 mg/dL (0.40-1.00); Globulin, Blood 5.4 g/dL (2.2-4.0); Glomerular Filtration Rate >60 (60-); Glucose, Blood 87 mg/dL (70-99); Potassium, Blood 3.9 mmol/L (3.5-5.5); Sodium, Blood 144 mmol/L (136-145); Total Protein, Blood 6.8 g/dL (6.4-8.2); Troponin I <0.015 ng/mL (0.000-0.040)
[2020-06-21] MEDS ORDERED: LOSA50 PO (21:54)
[2020-06-21] MEDS ORDERED: DIVA125 PO (21:54)
[2020-06-21 23:25] LABS: Source, Urine Catheter
[2020-06-21 23:37] LABS: Bilirubin, Urine Neg (Neg); Blood, Urine 4+ (Neg); Glucose Qualitative, Urine Neg (Neg); Ketones, Urine 1+ (Neg); Leukocyte Esterase, Urine 2+ (Neg); Nitrite, Urine Neg (Neg); Protein, Urine 2+ (Neg); Urobilinogen, Urine NORM (Normal)
[2020-06-21 23:40] LABS: Appearance, Urine Hazy (Clear); Color, Urine Yellow (P-Yellow)
[2020-06-21 23:44] LABS: Bacteria Few /hpf; Mucus Light (0-Heavy); Squamous Epithelial Cells Not Seen /hpf (Few); White Blood Cells, Urine TNTC /hpf (0-5)
[2020-06-22 00:02] LABS: Free Thyroxine 1.17 ng/dL (0.70-1.60)
[2020-06-22 07:26] LABS: BASOPHILS ABSOLUTE AUTO 0.04 K/mm3 (0.00-0.23); BASOPHILS PERCENT AUTO 0 % (0-2); EOSINOPHILS PERCENT AUTO 3 % (0-6); Hematocrit 26.7 % (33.0-51.0); Hemoglobin 8.5 g/dL (11.5-16.0); IMMATURE GRAN PERCENT AUTO 1 % (0-1); LYMPHOCYTES ABSOLUTE AUTO 2.15 K/mm3 (0.84-5.20); LYMPHOCYTES PERCENT AUTO 21 % (21-46); MONOCYTES PERCENT AUTO 22 % (4-13); Mean Corpuscular HGB 33.7 pg (26.0-34.0); Mean Corpuscular HGB Conc 31.8 g/dL (31.5-36.5); Mean Corpuscular Volume 106 fL (80-100); Mean Platelet Volume 10.3 fL (9.1-12.4); NEUTROPHILS ABSOLUTE AUTO 5.29 K/mm3 (1.96-9.15); NEUTROPHILS PERCENT AUTO 53 % (41-73); Platelet Count 219 K/mm3 (150-400); RDW Standard Deviation 58.4 fL (35.1-46.3); Red Blood Cell Count 2.52 M/mm3 (3.80-5.20); White Blood Cell Count 10.08 K/mm3 (4.00-11.30)
--- NOTE | 2020-06-22 07:34 | NUR ---
PT NEW ADMIT ARRIVED TO FLOOR AT 0028. A/O X4 WITH FORGETFULNESS. PT APPEARS PALE AND WITHDRAWN. RIOS IN PLACE AND DRAINING YELLOW URINE. ULCER PRESENT ON COCCYX WITH BLACK DISCORLORATION UPON ARRIVAL. WOUND PHOTOGRAPHED WITH CONSENT AND IS IN CHART. MEPLIEX APPLIED TO AREA. Q2 REPOSITIONING PROVIDED. GENERALIZED EDEMA WITH BLE 4+ PITTING EDEMA. PT STATES SHE LIVES AT HOME WITH AND SON. VSS. CALL LIGHT WITHIN REACH, BED ALARM ON. REPORT GIVEN TO ONCOMING RN.
[2020-06-22 08:23] LABS: Alanine Aminotransfer (ALT/SGP 10 U/L (12-78); Albumin, Blood 1.7 g/dL (3.4-5.0); Albumin/Globulin Ratio 0.4 (0.8-1.8); Alk Phos 110 U/L (50-136); Anion Gap 3 mmol/L (6-16); Aspartate Aminotrans (AST/SGOT 21 U/L (12-37); Bilirubin, Total 0.3 mg/dL (0.1-1.0); Blood Urea Nitrogen 34 mg/dL (8-24); Bun/Creatinine Ratio 49.3 (12.0-20.0); CO2, Blood 33 mmol/L (21-32); Calcium, Blood 8.6 mg/dL (8.5-10.1); Chloride, Blood 109 mmol/L (98-108); Creatinine, Blood 0.69 mg/dL (0.40-1.00); Globulin, Blood 4.3 g/dL (2.2-4.0); Glomerular Filtration Rate >60 (60-); Glucose, Blood 82 mg/dL (70-99); Potassium, Blood 3.8 mmol/L (3.5-5.5); Sodium, Blood 145 mmol/L (136-145)
[2020-06-22 13:31] LABS: Percent Saturation 37.3 % (15.0-50.0)
[2020-06-22 14:38] LABS: Hematocrit 28.2 % (33.0-51.0); Hemoglobin 9.2 g/dL (11.5-16.0)
[2020-06-22] MEDS ORDERED: LEVO750 PO (18:01)
[2020-06-22] MEDS ORDERED: ACIDOPHILUS1 EAC3 PO (18:01)
--- NOTE | 2020-06-22 21:28 | NUR ---
06/22/202124 MEDS GIVEN WITH APPLESAUCE AND WATER. HAD SMALL BROWN BM AND ATTENDS CHANGED. MEPLIEX TO SACRAL AREA. NO COMPLAINTS.
== END 2020-06-22 21:47 | disposition home or self-care (01) ==
LOC: ER 17:50 → MEDS 17:51
PROVIDERS: Emergency Medicine; Family Medicine; ADMIT Internal Medicine
DX: E46 Unspecified protein-calorie malnutrition (principal); I11.0 Hypertensive heart disease with heart failure; I50.21 Acute systolic (congestive) heart failure; R09.02 Hypoxemia; L89.153 Pressure ulcer of sacral region, stage 3; G20 Parkinson's disease; E03.9 Hypothyroidism, unspecified; I07.1 Rheumatic tricuspid insufficiency; D63.8 Anemia in other chronic diseases classified elsewhere; G40.909 Epilepsy, unspecified, not intractable, without status epilepticus; Z68.33 Body mass index [BMI] 33.0-33.9, adult; Z79.2 Long term (current) use of antibiotics; Z79.899 Other long term (current) drug therapy; Z74.01 Bed confinement status; Z90.49 Acquired absence of other specified parts of digestive tract; Z90.710 Acquired absence of both cervix and uterus; Z23 Encounter for immunization
CPT/HCPCS: 36415; 71045; 80053; 81001; 82607; 82728; 82746; 83540; 83550; 83605; 83880; 84439; 84443; 84484; 85014; 85018; 85025; 87040; 87086; 93005; 93010; 94761; 96365; 96367; 96372; 99285-25; A9270-GY; G0378; J0696; J1650; J1940; J1956; P9046

== ENCOUNTER 2020-06-26 16:03 | Inpatient (IN) | payer OTHER ==
[~2020-06-26] VITALS: Ht 170.2 cm; Wt 89.2 kg
[~2020-06-26 16:03] MED LIST changes: +ACIDOPHILUS1 EAC3 PO
[2020-06-26 17:04] LABS: Albumin, Blood 1.1 g/dL (3.4-5.0); Albumin/Globulin Ratio 0.2 (0.8-1.8); Bilirubin, Total 0.4 mg/dL (0.1-1.0); Bun/Creatinine Ratio 23.3 (12.0-20.0); Calcium, Blood 8.2 mg/dL (8.5-10.1); Creatinine, Blood 2.23 mg/dL (0.40-1.00); Globulin, Blood 4.8 g/dL (2.2-4.0); Potassium, Blood 4.9 mmol/L (3.5-5.5); Total Protein, Blood 5.9 g/dL (6.4-8.2)
[2020-06-26] MEDS ORDERED: SYNTHROID75 MCG PO (17:40)
[2020-06-26 18:02] LABS: Hematocrit 28.8 % (33.0-51.0); Hemoglobin 9.3 g/dL (11.5-16.0); Mean Corpuscular HGB 33.7 pg (26.0-34.0); Mean Corpuscular HGB Conc 32.3 g/dL (31.5-36.5); Mean Corpuscular Volume 104 fL (80-100); Platelet Count 226 K/mm3 (150-400); RDW Coefficient Variation 15.4 % (11.7-14.2); RDW Standard Deviation 59.2 fL (35.1-46.3); Red Blood Cell Count 2.76 M/mm3 (3.80-5.20)
[2020-06-26 18:15] LABS: Source, Urine Catheter
[2020-06-26 18:25] LABS: Appearance, Urine Turbid (Clear); Bilirubin, Urine Neg (Neg); Blood, Urine 3+ (Neg); Color, Urine Amber (P-Yellow); Glucose Qualitative, Urine Neg (Neg); Ketones, Urine 1+ (Neg); Leukocyte Esterase, Urine 3+ (Neg); Nitrite, Urine Neg (Neg); Protein, Urine 3+ (Neg); Urobilinogen, Urine NORM (Normal)
[2020-06-26 18:34] LABS: BAND PERCENT MAN 4 % (0-8); BASOPHILS PERCENT MAN 0 % (0-2); EOSINOPHILS PERCENT MAN 0 % (0-6); LYMPHOCYTES ABSOLUTE MAN 1.77 K/mm3 (0.84-5.20); LYMPHOCYTES PERCENT MAN 6 % (21-46); MONOCYTES ABSOLUTE MAN 3.83 K/mm3 (0.16-1.47); MONOCYTES PERCENT MAN 13 % (4-13); NEUTROPHILS ABSOLUTE MAN 23.89 K/mm3 (1.96-9.15); SEG NEUTROPHILS PERCENT MAN 77 % (41-73); TOTAL CELLS COUNTED 100
[2020-06-26 18:46] LABS: Mucus Mod (0-Heavy)
[2020-06-26 18:47] LABS: Amorphous Mod (0-Heavy); Bacteria Few /hpf; Red Blood Cells, Urine 25-50 /hpf (0-2); Squamous Epithelial Cells Not Seen /hpf (Few); White Blood Cells, Urine 25-50 /hpf (0-5); Yeast/Fungi Urine Many /hpf
[2020-06-26 18:48] LABS: Granular Casts 0-2 /lpf (0); Transitional Epithelial Cells Mod /hpf (0-Rare)
[2020-06-26] MEDS ORDERED: DIVA125 PO (19:07)
--- NOTE | 2020-06-26 23:30 | NUR ---
[facility] CARE PT ARRIVES TO ICU VIA STRETCHER AT ABOUT 2200. SHE IS AWAKE, ALERT, BUT ONLY ORIENTED TO SELF, AND SURROUNDIGNS ( SHE WAS ABLE TO SAY HOSPITAL ONE TIME). HER ATTENDS WERE FULL OF LOOSE, BROWN STOOL (NO BLOOD WAS VISIBLE). SHE IS HYPOTENSIVE, SHE HAS A LARGE OPEN WOUND ON HER COCCYX - THAT WAS SATURATED WITH STOOL, SHE ALSO HAD MANY MORE WOUNDS COVERING HER BODY (SEE PICS IN CHART). THE WOUND ON HER COCCYX WAS THOROUGHLY CLEANED WITH WARM WATER AND SOAP, ALONG WITH A LOT OF WOUND CLEANSER SPRAY. A MEPILEX WAS APPLIED TO THE WOUND. SHE IS TREMULOUS AND RIDGID, MOANING AND GROANING ONLY AT THIS POINT - NOT SAYING ANY WORDS NOW. SHE HAS D10W INFUSING AT 75 ML/HR, AND LR AT 100 ML/HR. I CALLED DR. REYES AND WE GOT LEVOPHED STARTED AT 2 MCG/MIN. BLOOD SUGARS HAVE BEEN NORMAL TO MILDLY ELEVATED. HER BP IS QUITE LABILE, AND MAY HAVE SOMETHING TO DO WITH HER TREMORS - SOMETIMES THE SYSTOLIC IS VERY, BUT SUBSEQUENTLY IS VERY HIGH, OR THE DIASTOLIC IS VERY LOW WITH THE SYSTOLIC BEING ADEQUATE. WILL CONTINUE TO MONITOR. HER SON, RICA, IS AT THE BEDSIDE. HE TELLS ME THAT HER (HIS DAD) HAS STAGE 4 CANCER, AND HE IS UNABLE TO TAKE CARE OF JANAE. RICA LIVES IN [place] BUT HAS MOVED BACK RECENTLY TO STAY WITH HIS PARENTS TO HELP THEM. HE TELLS ME THAT JANAE HAS BEEN HOSPITALIZED MULTIPLE TIMES IN THE LAST FEW MONTHS.
[2020-06-27 00:43] LABS: Adenovirus Not Detected (NOT DETECT); Bordetella pertussis Not Detected (NOT DETECT); Chlamydophila pneumoniae Not Detected (NOT DETECT); Coronavirus 229E Not Detected (NOT DETECT); Coronavirus HKU1 Not Detected (NOT DETECT); Coronavirus NL63 Not Detected (NOT DETECT); Coronavirus OC43 Not Detected (NOT DETECT); Human Metapneumovirus Not Detected (NOT DETECT); Human Rhinovirus/Enterovirus Not Detected (NOT DETECT); Influenza A/2009-H1 Not Detected (NOT DETECT); Influenza A/H1 Not Detected (NOT DETECT); Influenza A/H3 Not Detected (NOT DETECT); Influenza B Not Detected (NOT DETECT); Mycoplasma pneumoniae Not Detected (NOT DETECT); Parainfluenza Virus 1 Not Detected (NOT DETECT); Parainfluenza Virus 2 Not Detected (NOT DETECT); Parainfluenza Virus 3 Not Detected (NOT DETECT); Parainfluenza Virus 4 Not Detected (NOT DETECT); Respiratory Syncytial Virus Not Detected (NOT DETECT); SARS-Cov-2 (COVID-19), BioFire Not Detected (NOT DETECT)
--- NOTE | 2020-06-27 01:00 | NUR ---
UPDATE AT 2350 I WAS ABOUT TO SCAN FENTANYL AND CEFEPIME ON A WoW IN THE ROOM, AND IT FROZE JUST BEFORE I COULD SUBMIT IT TO THE EMAR. I GAVE 25 MCG OF FENTANYL IV AND HUNG THE CEFEPIME A PB MEDICATION AT 2355. DOLLY IS MY WITNESS. I WILL FIX IT IN THE EMAR AFTER I CAN ASK THE HELP DESK FOR ASSISTANCE.
--- NOTE | 2020-06-27 03:50 | NUR ---
UPDATE PT HAD A BLOOD SUGAR OF 31, SO I GAVE HER AN AMP OF D50, I CALLED DR. REYES AND HE ALSO WANTED ME TO GIVE 1MG OF GLUCAGON, AND TURN UP THE D10 GTTP TO 100 ML/HR. WILL RECHECK BLOOD SUGARY IN 20 MINUTES. PT HAS BEEN HYPOTENSIVE, BUT CONTINUES TO HAVE CAP REFIL < 3s, +2/+1 PULSES, EXTREMETIES ARE WARM TO TOUCH - ALTHOUGH HER FINGERS ARE SLIGHTLY DUSKY. LEVOPHED NOW UP TO 18MCG/MIN. WILL CONTINUE TO MONITOR.
[2020-06-27 04:25] LABS: BASOPHILS ABSOLUTE AUTO 0.05 K/mm3 (0.00-0.23); BASOPHILS PERCENT AUTO 0 % (0-2); EOSINOPHILS ABSOLUTE AUTO 0.01 K/mm3 (0.00-0.68); EOSINOPHILS PERCENT AUTO 0 % (0-6); Hematocrit 23.9 % (33.0-51.0); Hemoglobin 7.6 g/dL (11.5-16.0); IMMATURE GRAN ABSOLUTE AUTO 0.19 K/mm3 (0.00-0.10); IMMATURE GRAN PERCENT AUTO 1 % (0-1); LYMPHOCYTES ABSOLUTE AUTO 2.41 K/mm3 (0.84-5.20); LYMPHOCYTES PERCENT AUTO 10 % (21-46); MONOCYTES ABSOLUTE AUTO 4.48 K/mm3 (0.16-1.47); MONOCYTES PERCENT AUTO 18 % (4-13); Mean Corpuscular HGB 33.3 pg (26.0-34.0); Mean Corpuscular HGB Conc 31.8 g/dL (31.5-36.5); Mean Corpuscular Volume 105 fL (80-100); Mean Platelet Volume 10.6 fL (9.1-12.4); NEUTROPHILS ABSOLUTE AUTO 17.37 K/mm3 (1.96-9.15); NEUTROPHILS PERCENT AUTO 71 % (41-73); Platelet Count 218 K/mm3 (150-400); RDW Coefficient Variation 15.4 % (11.7-14.2); RDW Standard Deviation 59.4 fL (35.1-46.3); Red Blood Cell Count 2.28 M/mm3 (3.80-5.20); White Blood Cell Count 24.51 K/mm3 (4.00-11.30)
[2020-06-27 04:45] LABS: Alanine Aminotransfer (ALT/SGP 14 U/L (12-78); Albumin, Blood 1.5 g/dL (3.4-5.0); Albumin/Globulin Ratio 0.4 (0.8-1.8); Alk Phos 72 U/L (50-136); Anion Gap 6 mmol/L (6-16); Aspartate Aminotrans (AST/SGOT 48 U/L (12-37); Bilirubin, Total 0.3 mg/dL (0.1-1.0); Blood Urea Nitrogen 50 mg/dL (8-24); Bun/Creatinine Ratio 23.4 (12.0-20.0); CO2, Blood 30 mmol/L (21-32); Calcium, Blood 8.1 mg/dL (8.5-10.1); Chloride, Blood 102 mmol/L (98-108); Creatinine, Blood 2.14 mg/dL (0.40-1.00); Glomerular Filtration Rate 24 (60-); Glucose, Blood 229 mg/dL (70-99); Potassium, Blood 3.7 mmol/L (3.5-5.5); Sodium, Blood 138 mmol/L (136-145); Total Protein, Blood 5.5 g/dL (6.4-8.2); Vancomycin, Random 14.4 ug/mL
--- NOTE | 2020-06-27 05:39 | NUR ---
SHIFT SUMMARY PT CONTINUES TO NOT ANSWER QUESTIONS OR FOLLOW COMMANDS, SHE CAN TRACK WITH HER PUPILS, AND SHE WILL MOAN, BUT DOES NOT USE WORDS. QUITE LETHARGIC. SHE HURTS PRETTY BAD WHEN SHE IS REPOSITIONED. SHE IS TREMULOUS. HER BLOOD PRESSURE IS QUITE LABILE, SOMETIMES THE DIASTOLIC IS VERY LOW AND THE SYSTOLIC IS ADEQUATE, OTHER TIMES THE SYSTOLIC IS ALSO LOW AND THE PULSE PRESSURE IS QUITE NARROW. LEVOPHED IS CURRENTLY ON AT 18 MCG/MIN. PT IS HAVING ECTOPY, SINUS RHYTHM WITH MANY PVCs, OFTEN ALTERNATING SINUS WITH PVC FOR A SHORT SPAN OF TIME. RATE CAN BE FROM ANYWHERE IN THE 40s TO THE 60-80s RANGE. PT ALSO HAVING ISSUES WITH BLOOD SUGAR, AFTER HER LOW OF 31 LAST NIGHT AN AMP OF D50, AND 1 MG OF GLUCAGON WAS GIVEN, AND HER D10W GTTP WAS INCREASED TO 100 ML/HR. THE SUGAR THEN INCREASED TO 247, THEN 195 (AT 0522). THE PT IS OLIGURIC, TOTAL OF 150 ML T/O NIGHT, RICA (SON) SAYS IT WAS SWITCHED OUT TWO DAYS AGO VIA HOME HEALTH NURSE. WILL PASS ALONG TO DAY SHIFT. PT HAS NUMEROUS WOUNDS, ONE STAGE 1-2 DECUB ULCER ON HER COCCYX THAT HAS A MEPILEX COVERING IT - SO WE HAVE BEEN REPOSITIONING HER Q2H. PT WAS IN PAIN, MOANING AND GRIMACING, AFTER BEING RGEPOSITIONED - SO I GAVE HER 25 MCG OF FENTANYL, (TIARA DIETRICH WITNESSED) BUT DUE TO THE ERROR ON [employer] IT WON'T LET ME CHART IT UNTIL THE PROBLEM ON THE WOW COMPUTER IS FIXED BY THE HELP DESK. STILL WAITING ON SOMEONE TO COME FIX THAT ISSUE. I GAVE ONE DOSE OF FENTANYL LAST NIGHT, ALONG WITH THE CEFEPIME (SEE PREVIOUS NOTE) BUT THOSE WERE NOT CHARTED D/T THE SAME ISSUE. BED LOW AND LOCKED. SON AT BEDSIDE.
--- NOTE | 2020-06-27 08:45 | NUR ---
ASSESSMENT- PT WITH EYES CLOSED, OPENS EYES TO NAME, ABLE TO STATE LAST NAME. KNOWS SON AT BEDSIDE. EXPLAINED PLAN OF CARE. MOANS WITH ANY MOVEMENT, UNABLE TO EXPLAIN WHAT HURTS. REPOSITIONED. MULTIPLE PRESSURE SORES, LEFT HEEL DARKENED-PRESSURE RELIEVING DRSGS ON AND HEELS FLOATED ON PILLOWS. LARGE SACRAL WOUND-MEPILEX INTACT. INCONTINENT-SANA CARE DONE. RIOS REPLACED-CHRONIC RIOS, REPLACED FOR ADMISSION. SCANT URINE OUTPUT. RIJ CENTRAL LINE DDI WITH LEVOPHED AT 18 MCG/MIN-DECREASED TO 16 MCG/MIN. D10 INFUSING AT 100 CC/HR. BLOOD SUGAR STABLE. LR TKO. NO N/V. LUNGS CLEAR, DIMINISHED, DENIES SOB, RESPIRATIONS UNLABORED. NSR WITH BIJEMINY. PIV X 2 D/C. SON AT BEDSIDE, REVIEWED PLAN OF CARE. ORAL CARE DONE.
--- NOTE | 2020-06-27 10:23 | NUR ---
PALLIATIVE CARE RN HERE TO DISCUSS PLAN WITH PT AND PT'S SON. REPORT TO CARE MANAGEMENT. ABLE TO DECREASE LEVOPHED. URINE OUTPUT POOR.
--- NOTE | 2020-06-27 10:44 | NUR ---
Pt resting in bed upon arrival. Pt is pleasantly confused. Pt's son Fran at bedside. Engaged in therapeutic listening as Fran reports Pt's spouse Eric and Pt's younger son are primary caregivers for Pt. Fran reports living in [place]. Pt's spouse is suffering from Stage 4 cancer. Pt is bedbound and requires assistance for all of her ADLs. Educated on the importance of planning for the future. Educated on disease process and developing multiple plans as disease process takes its coarse. Discussed at some point family may want to consider hospice. Educated on hospice philosophy. Son Fran is agreeable to have further conversation regarding hospice later today and will have Pt's spouse on speaker phone. Spoke with Bedside RN Soraya and discussed case. Palliative Care will remain available for therapeutic visits.
--- NOTE | 2020-06-27 12:00 | NUR ---
SALINE BOLUS INFUSED, VS STABLE. NSR WITH LESS ECTOPY. REPOSITIONED, MOANS WITH ANY MOVEMENT BUT THEN QUIET WHEN UNDISTURBED.
--- NOTE | 2020-06-27 14:36 | NUR ---
Spoke with Dr Cordova and discussed case. Family has decided to pursue comfort measures only. Dr Cordova has placed comfort care orders. Pt resting in bed with her eyes closed. Pt's son Fran at bedside. Engaged in therapeutic listening and anwered questions. Fran reports family is in agreement with comfort care. Family would like to hold off on discontinuing medicatons until spouse and other son arrives today. Fran expresses appreciation of visit. Spoke with Bedside RN Soraya and relayed family's request. Palliative Care will remain available for symptom management and supportive visits.
--- NOTE | 2020-06-27 14:52 | NUR ---
DR. JAVIER HERE-DISCUSSED PLAN WITH PT. COMFORT CARE ORDERS. PT QUIET, MOANS LOUDLY WITH ANY MOVEMENT. PT'S SON REFUSES PAIN RX, STATES WANTS PT TO BE AWAKE FOR FAMILY. FAMILY HERE NOW
--- NOTE | 2020-06-27 16:06 | NUR ---
FAMILY AT BEDSIDE. ORAL CARE DONE. DEFFERED PT TURNING. PT AWAKENS TO NAME, ABLE TO NOD HEAD. SHOOK HEAD NO WHEN QUESTIONED REGARDING PAIN. COMFORT CARE STATUS. VSS WITH [facility]-WILL D/C WHEN ALL FAMILY HERE PER REQUEST
--- NOTE | 2020-06-27 18:20 | NUR ---
PT'S HERE-STATES HE DOES NOT WANT TO PROLONG PT'S PAIN. WANTS TO WAIT UNTIL GRANDSON ARRIVES FROM [place] BEFORE STOPPING L[facility]. SBP 80-90'S. PT'S SONS AT BEDSIDE. STATES WANT TO VISIT FOR NOW. WILL NOTIFY NURSE WHEN WANTS IV'S D/C. REPOSITIONED, MOANS WITH MOVEMENT BUT THEN QUIET WITH EASY RESPIRATIONS WHEN UNDISTURBED. COMFORT CARE STATUS.
--- NOTE | 2020-06-27 18:43 | NUR ---
Spiritual care note: Large, loving family present at bedside. Facilitated family prayer for a peaceful transition. Spouse appears exhausted and frail. Encouraged self-care and rest. Pt did not respond, but did open eyes slightly as I prayed. Advised family freezer worker would remain available. They were appreciative of visit.
--- NOTE | 2020-06-27 19:05 | NUR ---
DR. JAVIER HERE-DISCUSSED PLAN OF CARE WITH FAMILY. FAMILY AGREEABLE TO STOP IV'S-DONE. WOULD LIKE NASAL CANNULA ON. PT'S RESPIRATIONS UNLABORED, QUIET, CALM. FINGERS DUSKY, COOL. EMOTIONAL SUPPORT TO FAMILY. PALLIATIVE CARE BOOKER DIAS HERE. PT TO TRANSFER TO MEDICAL.
--- NOTE | 2020-06-27 19:30 | NUR ---
BEDSIDE REPORT REC'D FROM Sharron SIMPSON RN. PT HAS MULTIPLE FAMILY MEMBERS AT BEDSIDE. PT OPENS EYES TO VOICE, APPEARS VERY WEAK BUT COMFORTABLE. PLAN TO MOVE PT TO ROOM 301.
--- NOTE | 2020-06-27 20:09 | NUR ---
REPORT TO Janel BELCHER RN W PT STATUS, COMFORT CARE. PT HAS R IJ CENTRAL LINE IN PLACE. CONFIRMED W Fahad SMITH RN WILL CONTINUE IN PLACE. PT WILL TRANSFER TO 301 PER BED.
--- NOTE | 2020-06-27 21:00 | NUR ---
2030 REPORT RECEIVED VIA LARISSA ALBERTO FROM ICU; PT TO ROOM 301 PER BED; PT MOVED INTO BED X 4 ASSIST VIA SLIDER SHEET; FAMILY AT SIDE AND SUPPORTIVE; PTS SON AT SIDE AND PLANS TO SPEND NOC.
--- NOTE | 2020-06-28 04:11 | NUR ---
SHIFT SUMMARY: 69 Y/O FEMALE ON COMFORT CARE; PT NON RESPONSIVE ENTIRE SHIFT; PTS SON AT SIDE AND SUPPORTIVE; PTS HAD NO ORAL INTAKE; REPOSITIONED Q2H X 2 STAFF; BED LOW POSITION WITH CALL LIGHT AT SIDE.
--- NOTE | 2020-06-28 09:51 | NUR ---
Comfort Care Visit Pt resting in bed and is non responsive. Pt appears comfortable with no S/S of distress. Family at bedside. Offered therapeutic listening and answered questions. Educated family on the importance of speaking with Pt and reasuuring her. Family expresses appreciation of visit and reports no concerns at this time. Spoke with Bedside RN Michelle and discussed case. Palliative Care will remain available for symptom management and supportive visits.
--- NOTE | 2020-06-28 09:52 | NUR ---
LATE ENTRY FOR 07:05 PATIENT RESTING IN BED WITH HER SON AT THE BEDSIDE. PATIENT IS NON-RESPONSIVE TO VOICE OR MOVEMENT. AIR HUNGER NOTED. MEDICATED PER EMAR. FAMILY IS APPRECIATIVE OF CARE. ALL QUESTIONS AND CONCERNS ADDRESSED AT THIS TIME.
--- NOTE | 2020-06-28 13:37 | NUR ---
PATIENT PASSING: FAMILY SOUGHT OUT RN TO NOTIFY HER OF POTENTIAL PATIENT PASSING. UPON ENTERING THE ROOM, THE PATIENT WAS STILL WITHOUT ANY BREATHS. LISTENED FOR HR WITHOUT NOTING ANY SOUNDS. PATIENT APPEARS TO HAVE PASSED (PALE SKIN, SUNKEN FEATURES, LACK OF BREATHING). NOTIFIED DR. JAVIER. SHIELA MILLER, PC RN IN THE ROOM. HE REQUESTED NANDO RIOS.
--- NOTE | 2020-06-28 14:15 | NUR ---
Spoke with Bedside RN Michelle. Pt has . Family at bedside and tearful. Offered condolences and emotional support. Family report Pt's spouse is currently in the ED and is aware of Pt's passing. Answered questions and continued therapeutic listening. Family requesting Milieu Therapist visit. Spoke with Palliative Care Milieu Therapist Ana and relayed family's request. Family appears to be grieving appropriately. Palliative Care will remain available.
--- NOTE | 2020-06-28 17:12 | NUR ---
Spiritual care note: Provided bereavement day camp counselor and prayer with family. They were tearful and appropriate. Pt passed peacefully and surrounded by love. Pt's spouse admitted and in ED. Spent time with family there as well. [facility] was selected for arrangements.
--- NOTE | 2020-06-28 19:11 | NUR ---
LATE ENTRY FOR 1430: FAMILY HAS MADE MORTUARY WISHES KNOW. POTTERY DECORATION DESIGNER MICHEAL Keita HELPING WITH THE DISCHARGE. EDUCATION AND SUPPORT PROVIDED TO FAMILY. THEY HAVE BEEN PROVIDED WITH PRIVACY TO ALLOW FOR TIME WITH THE PATIENT. PATIENT'S ABLE TO VISIT UP FROM THE ER.
== END 2020-06-28 13:30 | DRG 698 ==
LOC: ER 16:03 → ICUW 20:39 → MEDS 06-27 20:27
PROVIDERS: Emergency Medicine; Physician Assistant; ADMIT Internal Medicine
PROC: 02HV33Z Insertion of Infusion Device into Superior Vena Cava, Percutaneous Approach (ICD-10-PCS; principal; 2020-06-26)
DX: T83.511A Infection and inflammatory reaction due to indwelling urethral catheter, initial encounter (principal); A41.9 Sepsis, unspecified organism; E43 Unspecified severe protein-calorie malnutrition; G93.41 Metabolic encephalopathy; J18.9 Pneumonia, unspecified organism; R65.21 Severe sepsis with septic shock; N17.9 Acute kidney failure, unspecified; N18.4 Chronic kidney disease, stage 4 (severe); Z51.5 Encounter for palliative care; Z20.828 Contact with and (suspected) exposure to other viral communicable diseases; Z66 Do not resuscitate; E03.9 Hypothyroidism, unspecified; N15.9 Renal tubulo-interstitial disease, unspecified; N30.90 Cystitis, unspecified without hematuria; N28.89 Other specified disorders of kidney and ureter; N34.2 Other urethritis; G20 Parkinson's disease; G40.909 Epilepsy, unspecified, not intractable, without status epilepticus; I12.9 Hypertensive chronic kidney disease with stage 1 through stage 4 chronic kidney disease, or unspecified chronic kidney disease; L89.152 Pressure ulcer of sacral region, stage 2; L89.891 Pressure ulcer of other site, stage 1; L89.621 Pressure ulcer of left heel, stage 1; Z74.01 Bed confinement status; E16.2 Hypoglycemia, unspecified; R40.2440 Other coma, without documented Glasgow coma scale score, or with partial score reported, unspecified time; Z68.31 Body mass index [BMI] 31.0-31.9, adult; R09.02 Hypoxemia; E88.09 Other disorders of plasma-protein metabolism, not elsewhere classified; Z99.81 Dependence on supplemental oxygen; R60.9 Edema, unspecified; E86.0 Dehydration
CPT/HCPCS: 0202U; 36415; 36556; 51703; 70450; 71045; 71250; 74176; 80053; 80202; 81001; 82947; 83605; 83880; 85025; 87040; 87086; 93005; 93010; 96361-59; 96365-59; 96366-59; 96368; 96375-59; 99291-25; 99292; C1751; J0456; J0692; J0696; J1610; J1644; J3010; J3370; J7030; J7042; J7050; J7060; J7120; P9046; U0003